=== PATIENT | female | born 2000 | race Caucasian/White ===

== ENCOUNTER 2024-02-26 16:01 | Emergency (ER) | payer BC, SELFPAY ==
--- NOTE | 2024-02-26 16:04 | ED.EYEPROB ---
HPI - Eye Problem General Chief complaint: Eye Problems Stated complaint: Eye Problems Time Seen by Provider: 02/26/24 16:04 Source: patient Mode of arrival: ambulatory Limitations: no limitations History of Present Illness HPI Narrative: Edith is a 23-year-old female patient presenting to the clinic today with complaints of right eye injury/possible foreign body. She reports she woke up this morning with eye irritation and discomfort. States that her eye is watering. Denies any known injury. Does wear contacts. Review of Systems Review of Systems: Pertinent positives per HPI. Patient denies any fever, chills, rash, headache, visual changes, dizziness, cough, runny nose, sore throat, shortness of breath, chest pain, palpitations, nausea, vomiting, diarrhea, constipation, abdominal pain, or any urinary issues. PMFSH Comments At the time of my signature, I reviewed and agree with the nursing past medical, surgical, social, and family history. There is no relevant family history pertinent to the patient complaint. Exam Narrative: General: Well-developed, well nourished, in no apparent distress Head: Normocephalic, atraumatic Eyes: Pupils equally round and reactive to light bilaterally, EOM intact, left sclera and conjunctive clear, right sclera mildly injected and conjunctiva clear, no discharge, lids normal, Wood's lamp exam was performed although it shows no obvious corneal abrasion it does appear the patient has a foreign body to the cornea at the level of the iris at approximately 4-5 o'clock Ears: TMs intact and clear, ear canals clear, no drainage, grossly hearing normal. Nose: Nares patent, no discharge, no inflammation, no sinus tenderness. Mouth: Oropharynx without lesions or masses, good dentition, MMM. Neck: Supple, trachea midline, no enlargement of anterior or posterior cervical nodes, no thyroid masses or goiter palpable. Cardio: Regular rate and rhythm, s1 and s2 normal, no murmur appreciated. Resp: Clear to auscultation bilaterally anteriorly and posteriorly, no rhonchi, rales, wheezing or rubs Course Course Emergency Course: Portions of this record may have been created with voice recognition software. Level of Care: Express Care Visit Vital Signs Vital signs: Vital Signs Temperature 36.9 C 02/26/24 16:11 Pulse Rate 81 02/26/24 16:11 Respiratory Rate 16 02/26/24 16:11 Blood Pressure 118/81 02/26/24 16:11 Pulse Oximetry 100 02/26/24 16:11 Temperature 36.9 C 02/26/24 16:11 Pulse Rate 81 02/26/24 16:11 Respiratory Rate 16 02/26/24 16:11 Blood Pressure 118/81 02/26/24 16:11 Pulse Oximetry 100 02/26/24 16:11 Vital signs reviewed Procedures Other Procedure Procedure 1: Other Procedure: Two drops of topical anesthetic was instilled with good anesthesia into the right eye. Fluorescein stain of the right eye was performed without uptake of dye. No epithelial defect was noted. Foreign body noted over the iris at approximately 4 5:00 a.m. attempted to remove using wet sterile Q-tips without success. Patient is unable to hold her eye still so I do not feel comfortable attempting a needle removal. No ulcer or dendritic lesions. Upper lid was everted and no FB or lesions were noted. NO Jefferson sign. Normal saline irrigation eye solution was performed and the patient tolerated the procedure well, no adverse reaction or complications. MDM - Eye Problem MDM Narrative Medical decision making narrative: At the time of visit patient is resting comfortably on the exam table. Patient appears to be nontoxic. Procedures: Wood's lamp exam was performed and shows no obvious corneal abrasion but does show a foreign body to the cornea at approximately 4 5:00 a.m. over the iris. Attempted to remove using a wet sterile Q-tip without success. Patient was and able to hold her eye still. Do not feel comfortable using a needle to try to remove as the patient is unable to keep her eye still. Plan: Recommend follow-up with ophthalmology in 1-2 days. Will send in prescription for ofloxacin eyedrops and have her not use her contacts until seen by Ophthalmology. Supportive measures were discussed with the patient and they voiced understanding discharge instructions and agrees to treatment plan. Return precautions reviewed Differential Diagnosis Differential diagnosis: Likely corneal abrasion, conjunctivitis, acute iritis, hyphema, periorbital cellulitis, subconjunctival hemorrhage, glaucoma, corneal ulcer and ruptured globe Discharge Plan Discharge Clinical Impression: Corneal foreign body Qualifiers: Encounter type: initial encounter Laterality: right Qualified Code(s): T15.01XA - Foreign body in cornea, right eye, initial encounter Patient Disposition: Home, Self-Care Condition: Stable Instructions: Antibiotic Form, Corneal Abrasion (ED), Eye Foreign Body (ED) Additional Instructions: Instill ofloxacin eyedrops as prescribed Follow-up with eye doctor in the next 1-2 days May take Tylenol/Motrin as needed for pain If you are having photosensitivity may wear sunglasses Follow-up with your primary care doctor as needed Prescriptions: New ofloxacin 0.3 % drops 1 drp RIGHT EYE QID 7 Days Qty: 10 0RF Follow-up/Referrals: UNKNOWN,DOCTOR [Non-Staff] - Time of Disposition: 16:40 Quality NIHSS Nursing Documentation ED NIHSS nursing documentation: reviewed/agree
[2024-02-26 16:11] VITALS: BP 118/81; PULSE 81; RESP 16; TEMP 36.9; O2SAT 100
== END 2024-02-26 16:48 | disposition home or self-care (01) ==
PROVIDERS: Emergency Provider Nurse Practitioner Family
DX: T15.01XA Foreign body in cornea, right eye, initial encounter (principal); W44.9XXA Unspecified foreign body entering into or through a natural orifice, initial encounter
CPT/HCPCS: 65220; 99213; A9270; G0463